=== PATIENT | male | born 1965 | race Hispanic/Latino ===

== ENCOUNTER → 2018-08-29 | Outpatient (CLI) | payer OTHER | END | disposition home or self-care (01) | LOC: OIH 13:20 | PROVIDERS: ATTEND Family Medicine | DX: J44.9 Chronic obstructive pulmonary disease, unspecified (principal); M51.37 Other intervertebral disc degeneration, lumbosacral region; M25.562 Pain in left knee; M48.07 Spinal stenosis, lumbosacral region | CPT/HCPCS: 71046; 72100; 73562 ==